=== PATIENT | male | born 1955 | race Caucasian/White ===

== ENCOUNTER 2016-05-21 06:16 | Inpatient (IN) | payer OTHER ==
--- NOTE | 2016-05-04 09:20 | PAT Medication Instructions ---
Service Date May 04, 2016. Current Home Medication List Acetaminophen (Tylenol Arthitis Ext Rel), 650 MG PO Q8H PRN for Pain Aspirin (Aspirin Ec), 81 MG PO QAM Lisinopril & Hydrochlorothiazi (Zestoretic 20-12.5 mg), 1 TAB PO QAM Tramadol (Ultram), 50 MG PO Q8H PRN for Pain Medication Instructions For Your Scheduled Surgery - Hold the following medications the morning of surgery: Lisinopril & Hydrochlorothiazi (Zestoretic 20-12.5 mg), 1 TAB PO QAM - Take the following medications the morning of surgery with a sip of water OTHERWISE NOTHING TO EAT OR DRINK AFTER MIDNIGHT: Acetaminophen (Tylenol Arthitis Ext Rel), 650 MG PO Q8H PRN for Pain (may take up to 4 hours prior to surgery if needed) Tramadol (Ultram), 50 MG PO Q8H PRN for Pain (may take up to 4 hours prior to surgery if needed) Aspirin (Aspirin Ec), 81 MG PO QAM - Take the following medications as scheduled the night before surgery: Acetaminophen (Tylenol Arthitis Ext Rel), 650 MG PO Q8H PRN for Pain Tramadol (Ultram), 50 MG PO Q8H PRN for Pain If you have any questions please call us at [phone] (Reanna Macias PA-C ) or [phone] or [phone]
[2016-05-04 10:06] LABS: BASO % 0.2 %; BASO ABS # 0.02 K/uL (0-0.2); COMPLETE YES; EOS % 2.1 %; HEMATOCRIT 45.3 % (42-52); IG% 0.2 %; LYMPH % 22.2 %; LYMPH ABS # 2.05 K/uL (1.2-3.4); MEAN CELL VOLUME 86.8 fL (80-100); MEAN CORPUSCULAR HEMOGLOBIN 29.5 pg (25-34); MEAN PLATELET VOLUME 9.9 fL (7.4-10.4); MONO % 10.1 %; NEUT % 65.2 %; PLATELET COUNT 276 K/uL (130-400); RED BLOOD COUNT 5.22 M/uL (4.7-6.1); WHITE BLOOD COUNT 9.24 K/uL (4.8-10.8)
--- NOTE | 2016-05-04 10:07 | DIAGNOSTIC IMAGING REPORT ---
CHEST PREADMISSION(PA/LAT) CLINICAL HISTORY: PAT preoperative evaluation COMPARISON STUDY: No previous studies for comparison. FINDINGS: The bones soft tissues and hemidiaphragms are normal. The cardiomediastinal silhouette is normal. The lungs are clear. The pulmonary vasculature is normal. IMPRESSION: Negative chest. Electronically signed by: Chas Mullen M.D. 05/04/2016 10:05 AM Dictated Date/Time: 05/04/2016 10:05 AM
[2016-05-04 10:16] LABS: ESTIMATED AVERAGE GLUCOSE 100 mg/dl; HA1C FLAG Normal (Normal); PROTHROMBIN TIME (PATIENT) 10.4 SECONDS (9.0-12.0)
[2016-05-04 10:33] LABS: BUN/CREATININE RATIO 20.9 (10-20); CALCIUM 9.7 mg/dl (8.5-10.1); CREATININE 0.9 mg/dl (0.60-1.40); POTASSIUM 4.3 mmol/L (3.5-5.1)
--- NOTE | 2016-05-20 10:07 | HISTORY & PHYSICAL EXAMINATION ---
DATE OF ADMISSION: 05/21/2016 CHIEF COMPLAINT: Right hip pain. HISTORY OF PRESENT ILLNESS: The patient is a 60-year-old gentleman with known osteoarthritis about his right hip. He had a previous left total hip arthroplasty which has done well. He continues to have ongoing pain and disability with the right hip and now desires to proceed with right total hip arthroplasty as well. PAST MEDICAL HISTORY: Hypertension. PAST SURGICAL HISTORY: Left hip replacement as above, right knee replacement, hernia surgery, back surgery. MEDICATIONS: Lisinopril 2.5 mg daily. ALLERGIES: No known drug allergies. SOCIAL HISTORY AND REVIEW OF SYSTEMS: Noncontributory. PHYSICAL EXAMINATION: GENERAL: Well-nourished, well-developed male who appears his stated age. HEAD, EYES, EARS, NOSE, AND THROAT: Normocephalic, atraumatic, extraocular movements intact, oropharynx pink and moist. NECK: Supple without adenopathy. LUNGS: Clear to auscultation bilaterally. HEART: Regular rate and rhythm. ABDOMEN: Soft, nontender, nondistended, obese. EXTREMITIES: The upper extremity within normal limits. The right hip demonstrates limited range of motion. There is limitation of active and passive internal/external rotation with pain at end range. X-RAYS: X-rays were reviewed. He has severe osteoarthritis about the right hip with complete loss of the joint space. There is osteophyte formation about the femoral head and acetabulum. The left hip demonstrates a well-aligned well-fixed left total hip arthroplasty. ASSESSMENT: Right hip degenerative joint disease. PLAN: Risks versus benefits were discussed. Consent was obtained. The patient's primary care physician is Dr. Dav Gibson. Will proceed with right total hip arthroplasty upon preoperative workup and medical clearance.
[~2016-05-21] VITALS: Ht 188 cm; Wt 107.1 kg
[2016-05-21] VITALS (9 sets, daily range): BP systolic 105–147; BP diastolic 66–83; PULSE 84–92; TEMP 36.4–36.9; O2SAT 93–97; Ht 188 cm; Wt 107.1 kg
[~2016-05-21 06:16] MED LIST: ACETAMINOPHEN 500 MG TAB PO SCH; ASPI81TA28 PO; CEFAZOLIN 2000 MG/60 ML D5W 60 ML IV SCH; CeleBREX 200 MG CAP PO SCH; DEXAMETHASONE 4 MG TAB PO SCH; FAMOTIDINE 20 MG TAB PO SCH; GABAPENTIN 300 MG CAP PO SCH; LACTATED RINGER'S 1000ML 1,000 ML IV SCH; LACTATED RINGER'S 1000ML IV SCH; LACTATED RINGER'S 500 ML IV SCH; LISI-787 PO; METOCLOPRAMIDE HCL 10 MG TAB PO SCH; ROPIVACAINE 5MG/ML 30 ML 150 MG, BUPIVACAINE/EPINEPHR 0.5% MPF 30 ML, KETOROLAC TROMETH... INFIL SCH; TRAM-10 PO; TYLER650 PO
[2016-05-21] MEDS ORDERED: BUPIVACAINE 0.5 % 5 MG/1 ML PF 10ML VIAL ONE (06:30)
[2016-05-21] MEDS ORDERED: POVIDONE-IODINE OP SOLN 30 ML BTL ONE (06:53)
[2016-05-21] MEDS ORDERED: ORTHO JOINT ANESTHETIC ONE (06:53)
[2016-05-21] MEDS ORDERED: BACITRACIN 50000 UNIT VIAL ONE (06:53)
[2016-05-21] MEDS ORDERED: FENTANYL CITRATE INJ 50 MCG/1 ML 2 ML VIAL ONE (07:03)
[2016-05-21] MEDS ORDERED: MIDAZOLAM HCL 1 MG/ML 2ML VIAL ONE (07:03)
--- NOTE | 2016-05-21 07:06 | History & Physical Bridge Note ---
H&P Re-Evaluation Bridge Note: I have examined the patient, reviewed the History & Physical and in the interval since the performance of the History & Physical I have noted the following changes of clinical significance: No changes noted
[2016-05-21] MEDS: TRANEXAMIC ACID INJ 1,000 MG in SODIUM CHLORIDE 0.9% 100ML 100 ML IV SCH ×2 (07:24→12:27)
[2016-05-21] MEDS ORDERED: FENTANYL CITRATE INJ 50 MCG/1 ML 2 ML VIAL IV PRN (08:15)
[2016-05-21] MEDS ORDERED: ATROPINE SULFATE 0.1 MG/ML 5ML SYR IV PRN (08:15)
[2016-05-21] MEDS ORDERED: EpHEDrine SULFATE INJ 50 MG/ML AMP IV PRN (08:15)
[2016-05-21] MEDS ORDERED: ONDANSETRON INJ 2 MG/ML 2 ML VIAL IV PRN ×2 (08:15→09:45)
[2016-05-21] MEDS ORDERED: LIDOCAINE HCL 2% 2 ML VIAL (20MG/ML) ONE (08:32)
[2016-05-21] MEDS ORDERED: PROPOFOL IV EMULSION 10 MG/ML 20 ML VIAL IV ONE ×3 (08:32→09:24)
[2016-05-21] MEDS ORDERED: EpHEDrine SULFATE 50MG/5ML SYR ONE (08:32)
[2016-05-21] MEDS ORDERED: PHENYLEPHRINE 100MCG/ML 5ML SYR ONE (08:32)
[2016-05-21] MEDS ORDERED: PHENYLEPHRINE HCL INJ 10 MG/ML VIAL ONE (09:03)
[2016-05-21] MEDS ORDERED: BISACODYL 10 MG SUPP PR PRN (09:45)
[2016-05-21] MEDS ORDERED: ALUMINUM/MAGNESIUM/SIMETH (MAALOX MAX) 30 ML UDC PO PRN (09:45)
[2016-05-21] MEDS ORDERED: DiphenhydrAMINE HCL 50 MG/ML VIAL IV PRN (09:45)
[2016-05-21] MEDS ORDERED: ZOLPIDEM TARTRATE 5 MG TAB PO PRN (09:45)
[2016-05-21] MEDS ORDERED: OXYCODONE HCL IR 5 MG TAB (IMMEDIATE RELEASE) PO PRN (09:45)
[2016-05-21] MEDS ORDERED: MAGNESIUM HYDROXIDE SUSP 30 ML UDC PO PRN (09:45)
[2016-05-21] MEDS ORDERED: MoRPHine SULFATE 2 MG/ML CARP IV PRN (09:45)
--- NOTE | 2016-05-21 10:03 | OPERATIVE REPORT ---
DATE OF OPERATION: 05/21/2016 PREOPERATIVE DIAGNOSIS: Osteoarthritis r hip. POSTOPERATIVE DIAGNOSIS: Osteoarthritis right hip. PROCEDURE: Right connective total hip arthroplasty. SURGEON: Dr. Cabrera. GRAPHIC ENGINEER: Ceasar Ambriz PA-C. ANESTHESIA: Spinal. COMPLICATIONS: None. OPERATION AND FINDINGS: PROCEDURE: Following induction of adequate spinal anesthesia, the patient was placed in the left lateral decubitus position and right Magui-Langenbeck incision was made. Subcutaneous tissue was sharply dissected. Electrocautery used for hemostasis. The fascia was incised throughout the length of the wound and a tapia scissor placed beneath the short external rotators. The pyriformis was tagged with #1 Vicryl. The short external rotators were divided from the posterior aspect of the femur using electrocautery. These were swept posteriorly. A T-capsulotomy incision was made and the hip was dislocated using a combination of flexion, adduction, and internal rotation. Exposure of the femoral neck with old-style Hohmann and a blunt Hohmann was carried out and a femoral rasp was utilized as a guide for making the appropriate level femoral neck cut. This bone fragment was removed and reserved on the back table. Next, attention was turned to the acetabulum where bone hook was used to retract the femur while the offset retractors were placed anterior and posteriorly. A double-angled Hohmann was placed in superior and anterior position exposing the acetabulum nicely. Acetabular labrum as well as posterior capsule elements were removed using a long knife and a long pickup. Fovea centralis was cleared of all soft tissue. Sequential reamings were carried up to a 58 acetabular reamer and decision was made to proceed with impaction of a 58 trabecular metal cup. This was impacted and held using a single 35 mm bone screw. The acetabular liner was placed with 15 of elevated posterior wall in the superior and posterior position. Next, attention was turned to the femoral portion of the case where a Bovie and pickup was used to further clear short external rotators from their insertion on the femur. Box osteotome was used to gain access to the femoral canal and the T-handled rasp and a rattail rasp were used to further open and lateral the canal. Sequentially raspings were carried up to a size which gave good fit and fill of the proximal femur. A trial reduction was carried out and femoral stem 7 offset femoral neck component was chosen as the size to be used. A -2.5 x 36 mm ceramic femoral head was impacted into position, +0 head was utilized. The trial reduction was stable in all degrees of rotation with no [id number] impingement. The hip was dislocated. The trial components were removed and the final femoral stem, neck, and femoral head combination were assembled on the back table and impacted into position. Hip was relocated. Range of motion checked once again successful and the wound was irrigated. The pyriformis repaired to the greater trochanter using #1 Vicryl [id number] suture. A Hemovac drain was placed and the fascia was closed using #1 Vicryl, subcutaneous tissue was closed using 0 Dexon, and skin was closed with carolann. Sterile dressing of Adaptic, 4 x 4's, ABDs, and foam tape was applied. The patient tolerated the procedure well. Recovery room stable. Due to the complex nature of the procedure, the entire surgery was performed with the operational assistance of Ceasar Ambriz PA-C. The training program assistant, under direct supervision, was involved in the actual performance of all aspects of the surgical procedure including hemostasis, tissue retraction and incision, instrument management, patient positioning, and wound closure. I attest to the content of the Intraoperative Record and any orders documented therein. Any exceptions are noted below. ARNOLDO
--- NOTE | 2016-05-21 10:59 | DIAGNOSTIC IMAGING REPORT ---
AP PELVIS, CROSSTABLE LATERAL RIGHT HIP History: Right total hip arthroplasty. Degenerative arthritis. Postop. FINDINGS: The patient is status post a right total hip arthroplasty. The hardware is intact. No fracture or dislocation. Skin carolann and surgical drains are in place. Evidence for prior left total hip arthroplasty. IMPRESSION: Right total hip arthroplasty. No evidence for hardware complication Electronically signed by: Negro Pandey M.D. 05/21/2016 10:58 AM Dictated Date/Time: 05/21/2016 10:57 AM
--- NOTE | 2016-05-21 11:02 | Anesthesiology Progress Note ---
Anesthesia Post Op Note Date & Time May 21, 2016 at 11:03 Vital Signs Pain Intensity: 0 Vital Signs Past 12 Hours Date Time Temp Pulse Resp B/P Pulse Ox O2 Delivery O2 Flow Rate FiO2 05/21/16 10:48 36.4 85 16 121/72 95 Nasal Cannula 2 05/21/16 10:45 84 12 95 05/21/16 10:45 83 12 05/21/16 10:43 121/72 05/21/16 10:40 93 16 05/21/16 10:40 91 16 94 05/21/16 10:38 125/69 05/21/16 10:35 87 13 97 05/21/16 10:35 88 13 05/21/16 10:33 120/69 05/21/16 10:30 86 14 05/21/16 10:30 85 14 97 05/21/16 10:28 120/70 05/21/16 10:25 86 12 98 05/21/16 10:25 85 12 05/21/16 10:24 90 15 05/21/16 10:24 90 15 97 05/21/16 10:23 125/72 05/21/16 10:19 84 15 96 05/21/16 10:19 84 15 05/21/16 10:18 121/69 05/21/16 10:14 84 15 96 05/21/16 10:14 85 15 05/21/16 10:13 134/65 05/21/16 10:09 89 17 05/21/16 10:09 88 17 96 05/21/16 10:08 115/69 05/21/16 10:04 90 18 05/21/16 10:04 90 18 97 05/21/16 10:03 124/69 05/21/16 09:59 85 17 05/21/16 09:59 86 17 96 05/21/16 09:58 110/70 17 09:56 84 15 1617 09:56 84 15 97 1617 09:53 117/67 05/21/17 09:51 84 16 16/17 09:51 83 16 96 05/21/16 09:50 36.1 89 16 126/89 94 Room Air 05/21/16 09:48 122/68 05/21/16 09:46 86 18 05/21/16 09:46 87 18 96 2/16/17 09:43 121/69 05/21/16 09:41 87 15 05/21/16 09:41 85 15 96 05/21/16 06:43 36.9 86 18 122/83 96 Room Air Notes Mental Status: alert / awake / arousable, participated in evaluation Pt Amnestic to Procedure: Yes Nausea / Vomiting: adequately controlled Pain: adequately controlled Airway Patency, RR, SpO2: stable & adequate BP & HR: stable & adequate Hydration State: stable & adequate Neuraxial Anesthesia: was administered, sensory block is resolving Anesthetic Complications: no major complications apparent
[2016-05-21] MEDS ORDERED: MoRPHine SULFATE 10 MG/ML CARP/VIAL IV PRN (12:00)
[2016-05-21] MEDS ORDERED: MoRPHine SULFATE 4 MG/ML 1 ML CARP\\VIAL IV PRN (12:00)
[2016-05-21] MEDS: D5W AND 1/2NSS + 20MEQ KCL 1,000 ML IV SCH ×2 (13:24→21:47)
[2016-05-21] MEDS: ACETAMINOPHEN 500 MG TAB PO SCH ×2 (13:26→21:37)
[2016-05-21] MEDS: CEFAZOLIN IV 2,000 MG in DEXTROSE 5% 50ML 50 ML IV SCH ×2 (15:35→23:57)
[2016-05-21] MEDS: FERROUS GLUCONATE 324 MG TAB PO SCH (17:46)
[2016-05-21] MEDS: DOCUSATE SODIUM 100 MG CAP PO SCH (21:36)
[2016-05-21] MEDS: SENNA 8.6 MG TAB PO SCH (21:36)
[2016-05-21] MEDS: ASPIRIN 81 MG ECTAB PO SCH (21:37)
[2016-05-22 03:21] VITALS: BP 138/77; PULSE 79; TEMP 37.1; O2SAT 97
[2016-05-22] MEDS: ACETAMINOPHEN 500 MG TAB PO SCH ×3 (05:47→21:49)
[2016-05-22 07:09] LABS: BASO % 0.1 %; BASO ABS # 0.01 K/uL (0-0.2); COMPLETE YES; HEMATOCRIT 36.4 % (42-52); IG% 0.3 %; LYMPH ABS # 1.53 K/uL (1.2-3.4); MEAN CORPUSCULAR HEMOGLOBIN 28.7 pg (25-34); MEAN CORPUSCULAR HGB CONC 33.8 g/dl (32-36); MEAN PLATELET VOLUME 9.7 fL (7.4-10.4); MONO % 11.4 %; NEUT % 80.2 %; PLATELET COUNT 268 K/uL (130-400); RED BLOOD COUNT 4.28 M/uL (4.7-6.1); WHITE BLOOD COUNT 19.15 K/uL (4.8-10.8)
[2016-05-22 07:42] LABS: BUN/CREATININE RATIO 19.5 (10-20); CALCIUM 8.3 mg/dl (8.5-10.1); CREATININE 0.8 mg/dl (0.60-1.40)
--- NOTE | 2016-05-22 07:46 | Orthopedic Progress Note ---
Orthopedic Progress Note Date of Service May 22, 2016. Subjective Post OP Day: 1 Reports: feeling well Objective calves soft nontender, N/V intact, dressing C/D/I (Hemovac in place), toes mobile Date Time Temp Pulse Resp B/P Pulse Ox O2 Delivery O2 Flow Rate FiO2 05/22/16 03:21 37.1 79 16 138/77 97 Room Air 05/22/16 00:02 Room Air 05/21/16 22:57 36.6 90 17 127/80 96 Room Air 05/21/16 19:47 36.7 84 18 147/79 93 Room Air 05/21/16 15:20 Room Air 05/21/16 15:05 36.6 87 18 117/72 93 Room Air 05/21/16 14:24 36.4 89 19 105/66 94 Room Air 05/21/16 13:36 97 Nasal Cannula 2.0 05/21/16 13:34 97 Nasal Cannula 2.0 05/21/16 13:30 36.4 90 19 112/70 97 Nasal Cannula 05/21/16 12:35 36.7 92 20 109/70 97 Nasal Cannula 2.0 05/21/16 12:05 36.5 88 16 118/73 96 Nasal Cannula 2.0 05/21/16 11:16 91 17 95 05/21/16 11:16 91 17 05/21/16 11:13 116/67 05/21/16 11:11 88 16 93 05/21/16 11:11 88 16 05/21/16 11:08 119/68 05/21/16 11:06 85 15 94 05/21/16 11:06 85 15 05/21/16 11:03 117/70 05/21/16 11:01 86 13 05/21/16 11:01 86 13 96 05/21/16 10:58 124/67 05/21/16 10:56 96 22 96 05/21/16 10:56 93 22 05/21/16 10:53 117/67 05/21/16 10:51 86 22 05/21/16 10:51 85 22 93 05/21/16 10:48 121/72 05/21/16 10:48 36.4 85 16 121/72 95 Nasal Cannula 2 05/21/16 10:46 85 13 05/21/16 10:46 85 13 95 2/16/17 10:45 84 12 95 2/16/17 10:45 83 12 2/16/17 10:43 121/72 2/16/17 10:40 93 16 2/16/17 10:40 91 16 94 2/16/17 10:38 125/69 2/16/17 10:35 87 13 97 2/16/17 10:35 88 13 216/17 10:33 120/69 216/17 10:30 86 14 216/17 10:30 85 14 97 216/17 10:28 120/70 2/16/17 10:25 86 12 98 2/16/17 10:25 85 12 2/16/17 10:24 90 15 2/16/17 10:24 90 15 97 16/17 10:23 125/72 16/17 10:19 84 15 96 16/17 10:19 84 15 16/17 10:18 121/69 16/17 10:14 84 15 96 16/17 10:14 85 15 16/17 10:13 134/65 16/17 10:09 89 17 16/17 10:09 88 17 96 16/17 10:08 115/69 16/17 10:04 90 18 16/17 10:04 90 18 97 16/17 10:03 124/69 16/17 09:59 85 17 16/17 09:59 86 17 96 16/17 09:58 110/70 16/17 09:56 84 15 16/17 09:56 84 15 97 16/17 09:53 117/67 16/17 09:51 84 16 16/17 09:51 83 16 96 16/17 09:50 36.1 89 16 126/89 94 Room Air 05/21/16 09:48 122/68 16/17 09:46 86 18 16/17 09:46 87 18 96 16/17 09:43 121/69 16/17 09:41 87 15 16/17 09:41 85 15 96 Laboratory Results 24 Hours: Test 05/22/16 06:51 White Blood Count 19.15 K/uL Red Blood Count 4.28 M/uL Hemoglobin 12.3 g/dL Hematocrit 36.4 % Mean Corpuscular Volume 85.0 fL Mean Corpuscular Hemoglobin 28.7 pg Mean Corpuscular Hemoglobin Concent 33.8 g/dl Platelet Count 268 K/uL Mean Platelet Volume 9.7 fL Neutrophils (%) (Auto) 80.2 % Lymphocytes (%) (Auto) 8.0 % Monocytes (%) (Auto) 11.4 % Eosinophils (%) (Auto) 0.0 % Basophils (%) (Auto) 0.1 % Neutrophils # (Auto) 15.38 K/uL Lymphocytes # (Auto) 1.53 K/uL Monocytes # (Auto) 2.18 K/uL Eosinophils # (Auto) 0.00 K/uL Basophils # (Auto) 0.01 K/uL Assessment & Plan Assessment: 60 yo male stable POD #1 s/p right BEATA Plan: 1. Med management 2. DVT prophylaxis- ASA, TEDs, SCDs 3. PT/OT 4. D/C planning: home w/ HH
--- NOTE | 2016-05-22 07:50 | Discharge Instructions ---
Discharge Instructions Admission Reason for Admission: Right Hip Osteoarthritis Discharge Discharge Diagnosis / Problem: Right hip arthritis Discharge Goals Goal(s): Decrease discomfort, Improve function Activity Recommendations Activity Limitations: as noted below Weightbearing Status: Right weightbearing (as tolerated) . Instructions / Follow-Up Instructions / Follow-Up ACTIVITY RECOMMENDATIONS: SELF CARE INSTRUCTIONS AFTER TOTAL HIP REPLACEMENT Until the incision and soft tissues around your hip have healed, there is a possibility that the hip prosthesis could dislocate. A. Observe the following precautions to prevent dislocation: 1. Don't bend your hip greater than 90 degrees. 2. Avoid crossing your legs or ankles while standing or lying. 3. Sit with your feet placed 6 inches apart. 4. When sitting, keep your knees below your hips. Sit on a firm surface, avoid deep, soft chairs and couches. Use an elevated toilet seat in the bathroom. 5. Don't bend over at the waist. Use a long handled shoehorn and a sock aid to help you put on your shoes and socks. A tile shader can help you pickling tank operator objects that are too high or too low to reach. 6. Keep car riding to a minimum for at least one month after surgery. B. Your balance may be shaky for a while. Use crutches or a walker until directed by your doctor. C. Use hand rails when walking on stairs. D. Wear low heeled shoes with non-slip soles. E. Be sure that your floors are free of things that could trip you - throw rugs , electrical cords, small objects. Avoid wet and waxed floors, especially with crutches and canes. F. Try to walk several times a day with rest periods between. G. Continue with all the exercises taught to you in the hospital. Again, make walking a part of your daily routine. SPECIAL CARE INSTRUCTIONS: VERY IMPORTANT TO READ AND REVIEW A. You may still be at risk for phlebitis and blood clots. 1. Wear surgical stockings (NORMA hose) for 2 weeks after surgery to improve circulation and reduce swelling. 2. Take Aspirin 81mg twice daily for 4 weeks or as directed by your doctor. This is your blood thinner. RESUME NORMAL ASPIRIN REGIME AFTER THIS IS COMPLETED 3. High risk patients may be prescribed a stronger blood thinner if necessary. 4. If you are on Coumadin normally, your family doctor/soil analyst should monitor your blood work. Expect a phone call the day of or the day after bloodwork is drawn to adjust your dosage. B. You must take antibiotics before having dental work, bladder, bowel and other surgery. Your doctor will provide you with a permanent card to carry describing precautions. C. Call [facility] if you have a fever, redness or swelling around the incision, cloudy drainage from incision, or sudden increase in pain in your hip, not relieved by your regular pain medication. D. Please call the office at if you have any concerns or questions about your operation or recovery. * YOU MAY SHOWER, NO TUB BATHS UNTIL CLEARED BY YOUR DOCTOR. * WEAR NORMA HOSE 20 HOURS PER DAY FOR 2 WEEKS. * YOU SHOULD USE A WALKER OR CRUTCHES FOR 2-4 WEEKS. THIS WILL HELP PREVENT STRAIN ON YOUR HIP MUSCLE AND ALLOW IT TO HEAL PROPERLY. YOU MAY WEAN TO A CANE TOLERATED. * MOST PATIENTS WILL HAVE HOME NURSING FOR THERAPY. IF YOU DECIDE TO DO OUTPATIENT PHYSICAL THERAPY, PLEASE SCHEDULE THIS 3 TIMES PER WEEK. Silverlon- This is a large adhesive bandage that contains silver ions. This helps your incision heal by fighting off bacteria and protecting it from the outside environment. You are permitted to shower with this dressing. This will remain on your incision for 7 days and then should be removed. Some visible blood or drainage through the dressing window is normal. If there is significant drainage or leaking noted before the 7 days notify your doctor's office immediately. Once removed, keep incision clean and dry. If there is any drainage or redness noted, please call your surgeon. FOLLOW UP VISIT: If appointment is not already scheduled: Please call [facility] to make a follow-up appointment for 2 weeks after your surgery at . Current Hospital Diet Patient's current hospital diet: Regular Diet Discharge Diet Recommended Diet: Regular Diet Procedures Procedures Performed: right total hip arthroplasty Pending Studies Studies pending at discharge: no Laboratory Results Hemoglobin A1c Test 05/04/16 09:26 Range/Units Estimated Average Glucose 100 mg/dl Hemoglobin A1c 5.1 4.5-5.6 % Medical Emergencies . Who to Call and When: Medical Emergencies: If at any time you feel your situation is an emergency, please call 911 immediately. . Non-Emergent Contact Non-Emergency issues call your: Surgeon Call Non-Emergent contact if: temperature is above 101.5, your pain is not controlled, wound has increased drainage, wound has increased redness . "Provider Documentation" section prepared by Nayan Miranda PA-C. VTE Core Measure Inpt VTE Proph given/why not?: Other Anticoagulation (ASA 81mg bid), T.E.D. Stockings, SCD's [place] Drug Monitoring Program Search Results: patient reviewed within database
[2016-05-22 08:07] VITALS: BP 122/64; PULSE 80; TEMP 36.9; O2SAT 97
[2016-05-22] MEDS: FERROUS GLUCONATE 324 MG TAB PO SCH ×3 (08:21→18:20)
[2016-05-22] MEDS: MULTIVITAMIN TAB PO SCH (08:22)
[2016-05-22] MEDS: DOCUSATE SODIUM 100 MG CAP PO SCH ×2 (08:22→21:00)
--- NOTE | 2016-05-22 08:22 | Anesthesiology Progress Note ---
Anesthesia Post Op Note Date & Time May 22, 2016 at 08:21 Vital Signs Pain Intensity: 3.0 Vital Signs Past 12 Hours Date Time Temp Pulse Resp B/P Pulse Ox O2 Delivery O2 Flow Rate FiO2 05/22/16 08:07 36.9 80 16 122/64 97 Room Air 05/22/16 03:21 37.1 79 16 138/77 97 Room Air 05/22/16 00:02 Room Air 05/21/16 22:57 36.6 90 17 127/80 96 Room Air Notes Mental Status: alert / awake / arousable, participated in evaluation Pt Amnestic to Procedure: Yes Nausea / Vomiting: adequately controlled Pain: adequately controlled Airway Patency, RR, SpO2: stable & adequate BP & HR: stable & adequate Hydration State: stable & adequate Neuraxial Anesthesia: sensory block resolved Anesthetic Complications: no major complications apparent
[2016-05-22] MEDS: PANTOprazole SOD 40 MG TAB PO SCH (08:23)
[2016-05-22] MEDS: ASPIRIN 81 MG ECTAB PO SCH ×2 (08:23→21:10)
[2016-05-22] MEDS: LISINOPRIL/HCTZ 20/12.5MG TAB PO SCH (08:24)
[2016-05-22 09:05] VITALS: O2SAT 97
[2016-05-22 12:21] VITALS: BP 124/78; PULSE 80; TEMP 36.8; O2SAT 96
[2016-05-22 15:41] VITALS: BP 112/71; PULSE 89; TEMP 36.6; O2SAT 97
[2016-05-22] MEDS: SENNA 8.6 MG TAB PO SCH (21:00)
[2016-05-22 23:00] VITALS: BP 127/69; PULSE 86; TEMP 37; O2SAT 99
[2016-05-23] MEDS: ACETAMINOPHEN 500 MG TAB PO SCH (05:53)
[2016-05-23 06:25] VITALS: BP 122/74; PULSE 88; TEMP 37; O2SAT 98
--- NOTE | 2016-05-23 08:13 | Orthopedic Progress Note ---
Orthopedic Progress Note Date of Service May 23, 2016. Subjective Post OP Day: 2 Reports: feeling well, pain controlled w PO medications, Denies: SOB, chest pain , complaints, light headedness, nausea / vomiting Additional Notes: Patient has no complaints this morning. He was sitting in no acute distress. Objective calves soft nontender, N/V intact, dressing C/D/I, A&O x3, toes mobile Date Time Temp Pulse Resp B/P Pulse Ox O2 Delivery O2 Flow Rate FiO2 05/23/16 06:25 37.0 88 16 122/74 98 Room Air 05/22/16 23:19 Room Air 05/22/16 23:00 37.0 86 16 127/69 99 Room Air 05/22/16 15:41 36.6 89 17 112/71 97 Room Air 05/22/16 15:20 Room Air 05/22/16 12:21 36.8 80 16 124/78 96 Room Air 05/22/16 09:05 97 Room Air Assessment & Plan Assessment: 60 yo male stable POD #2 s/p right BEATA Plan: 1. Med management 2. DVT prophylaxis- ASA, TEDs, SCDs 3. PT/OT 4. D/C planning: home w/ HH Inhouse Planning Pain Management: Morphine, PO Tylenol, Oxy IR DVT Prophylaxis: ASA Discharge Planning Discharge Planning: home with home health Pain Management: Celebrex, PO Tylenol, Oxy IR DVT Prophylaxis: ASA Therapy: Physical Therapy
[2016-05-23] MEDS ORDERED: ONDA8TAB12 PO (08:20)
[2016-05-23] MEDS ORDERED: RXC5 PO (08:20)
[2016-05-23] MEDS ORDERED: CLB200 PO (08:20)
[2016-05-23] MEDS ORDERED: ACET-1138 PO (08:20)
[2016-05-23] MEDS ORDERED: MORP-157 PO (08:20)
[2016-05-23] MEDS ORDERED: ASPI81TA28 PO ×2 (08:25→08:46)
[2016-05-23] MEDS: DOCUSATE SODIUM 100 MG CAP PO SCH (09:00)
[2016-05-23] MEDS: ASPIRIN 81 MG ECTAB PO SCH (09:04)
[2016-05-23] MEDS: FERROUS GLUCONATE 324 MG TAB PO SCH (09:04)
[2016-05-23] MEDS: MULTIVITAMIN TAB PO SCH (09:05)
[2016-05-23] MEDS: LISINOPRIL/HCTZ 20/12.5MG TAB PO SCH (09:05)
[2016-05-23] MEDS: PANTOprazole SOD 40 MG TAB PO SCH (09:05)
[2016-05-23 11:51] VITALS: BP 122/74; PULSE 88; TEMP 37; O2SAT 98
--- NOTE | 2016-05-27 14:30 | DISCHARGE SUMMARY ---
DISCHARGE DIAGNOSIS: Degenerative joint disease, right hip. SECONDARY DIAGNOSIS: Hypertension. CONSULTS: None. COMPLICATIONS: None. PROCEDURES: Right total hip arthroplasty performed by Dr. Cabrera on 05/21/2016. BRIEF HISTORY: As dictated in the history and physical. HOSPITAL SUMMARY: The patient was admitted on the above date and had the above-noted surgery performed which he tolerated well. On the first postoperative day, patient was feeling well. Calves were soft and nontender. Neurovascularly intact. Dressings clean, dry and intact. Toes were mobile. Vital signs stable. The patient was afebrile. Hemoglobin was 12.3, and patient was started on physical therapy protocol and continued on DVT prophylaxis and pain management. By his second postoperative day, the patient continued to remain stable. He had no complaints. Calves were soft and nontender, neurovascularly intact. Dressings clean, dry and intact. Toes were mobile. Vital signs were stable. He was afebrile and is progressing with his physical therapy and it was felt he could be discharged to home. For further review, please see chart. LAB AND X-RAY DATA: As per chart. DISCHARGE INSTRUCTIONS: The patient was discharged to home in satisfactory condition on 05/23/2016. DIET: Regular. ACTIVITY: Follow BEATA instruction sheets and special care instructions as noted. Weightbearing as tolerated right lower extremity and follow up with Dr. Cabrera in 2 weeks. The patient to call for an appointment if one has not been made for you. DISCHARGE MEDICATIONS: Acetaminophen 1000 mg p.o. q 8 hours p.r.n., Celebrex 200 mg p.o. b.i.d., MS Contin 15 mg p.o. q. 12 hours, Zofran 8 mg p.o. p.r.n., oxycodone 5-10 mg p.o. q. 4 hours p.r.n., resume lisinopril/hydrochlorothiazide 20/12.5 one tab p.o. q.a.m., aspirin 81 mg p.o. b.i.d. for 30 days and stop taking Tylenol Arthritis extended release and tramadol.
== END 2016-05-23 12:11 | disposition home or self-care (01) | DRG 470 ==
LOC: ENRESERVTM → ENRESERVDT → C.ACU 06:16 → C.3E 06:35
PROC: 0SR90JZ Replacement of Right Hip Joint with Synthetic Substitute, Open Approach (ICD-10-PCS; principal; 2016-05-21 08:00)
DX: M16.11 Unilateral primary osteoarthritis, right hip (principal); Z96.642 Presence of left artificial hip joint; I10 Essential (primary) hypertension; Z96.651 Presence of right artificial knee joint